=== PATIENT | female | born 1970 | race African-American/Black ===

== ENCOUNTER 2024-09-25 13:48 | Emergency (ER) | payer MEDICAID, OTHER ==
[~2024-09-25] VITALS: Ht 149.9 cm; Wt 50.0 kg
[~2024-09-25 13:48] MED LIST: hctz; lotensin; norvasc; simvastatin; soma; starlix; vicodin
[2024-09-25 14:00] VITALS: TEMP 36.7; O2SAT 100
[2024-09-25] MEDS: HYDRALAZINE 20MG/ML VIAL IV ONE (15:18)
[2024-09-25 15:30] LABS: BASOPHILS % 0.8 % (0.0-2.0); EOSINOPHILS % 0.9 % (0.0-5.0); HEMATOCRIT. 41.9 % (36.0-48.0); HEMOGLOBIN. 13.8 g/dL (12.0-16.0); LYMPHOCYTES % 33.1 % (20.0-50.0); MEAN PLATELET VOLUME 9.9 fl (7.4-10.4); MONOCYTES % 7.4 % (2.0-8.0); NEUTROPHILS % 57.8 % (40.0-76.0); PLATELET 150 x1000/uL (130-400); RED BLOOD CELL COUNT 4.36 mill/uL (4.2-5.4); RED CELL DISTRIBUTION WIDTH 15.1 % (11.6-14.6)
[2024-09-25] MEDS: CLONIDINE 0.2MG TABLET PO ONE (15:30)
[2024-09-25 15:42] LABS: INR 1.1
[2024-09-25 15:48] LABS: CREATININE 0.7 mg/dL (0.6-1.0); UREA NITROGEN BLOOD 7 mg/dL (9-23)
[2024-09-25 15:49] LABS: TROPONIN I HIGH SENSITIVITY 4 ng/L (3.0-34)
[2024-09-25 16:24] VITALS: BP 170/112; PULSE 82; RESP 12; O2SAT 100
[2024-09-25] MEDS ORDERED: HYDRALAZINE 20MG/ML VIAL IV SCH (16:30)
== END 2024-09-25 16:36 | disposition home or self-care (01) ==
LOC: ER 13:48
DX: I10 Essential (primary) hypertension (principal); R51.9 Headache, unspecified; R06.02 Shortness of breath; Z79.899 Other long term (current) drug therapy
CPT/HCPCS: 99285; 96374; 71045; 80048; 83880; 85025; 85610; 84484; 36415; 93005; J0360